=== PATIENT | male | born 1990 | race Caucasian/White ===

== ENCOUNTER 2016-11-13 11:26 | Emergency (ER) | payer BC ==
[2016-11-13] MEDS ORDERED: TORAdol 30 mg Injection IM ONE (14:01)
[2016-11-13] MEDS ORDERED: Celestone Soluspan 6MG/ML IM ONE (14:02)
[2016-11-13] MEDS ORDERED: TORAdol 30 mg Injection ONE (14:08)
--- NOTE | 2016-11-13 14:08 | ERPHSYRPT ---
- History of Present Illness Time Seen by Provider: 11/13/16 13:55 Source: patient Patient Subjective Stated Complaint: PT REPORTS HE HAS HX OF HERNIATED DISK IN BACK-STATES HE NORMALLY GETS SHOTS IN BACK BUT HAS NOT BEEN ABLE TO GET THEM- DENIES FURTHER INJURY Triage Nursing Assessment: PT PINK WARM ET [id number] OBVIOUS INJURY-NO LIMP NOTED WHEN PT AMBULATORY TO ED ROOM Physician History: CC: back pain Hx: 26 y/o patient with hx of herniated lumbar disk formerly saw pain specialist for back injections. He had to change doctors. He has worsened back pain radiating to leg for a few days, pain severe, sharp and stabbing. No fever , chills, abd pain, hematuria, incontinence. No tingling. Pain radiates to the right lateral upper leg. Not relieved with APAP/motrin at home. Timing/Duration: day(s) (few) Method of Injury: other (no recent injury) Back Pain Location: lumbar spine Back Pain Radiation: upper legs (right) Severity of Pain-Max: severe Severity of Pain-Current: severe Allergies/Adverse Reactions: tramadol Allergy (Verified 11/13/16 13:27) cross eyed Hx Tetanus, Diphtheria Vaccination/Date Given: Yes Hx Influenza Vaccination/Date Given: No Hx Pneumococcal Vaccination/Date Given: No Immunizations Up to Date: Yes - Review of Systems Constitutional: No Fever, No Chills Eyes: No Symptoms Ears, Nose, & Throat: No Symptoms Abdominal/Gastrointestinal: No Abdominal Pain Genitourinary Symptoms: No Dysuria, No Hematuria, No Incontinence, No Flank Pain , No Testicle Pain Musculoskeletal: Back Pain Skin: No Rash Neurological: No Focal Weakness, No Headache, No Parasthesia All Other Systems: Reviewed and Negative - Past Medical History Pertinent Past Medical History: Yes Neurological History: No Pertinent History ENT History: No Pertinent History Cardiac History: No Pertinent History Respiratory History: No Pertinent History Endocrine Medical History: No Pertinent History Musculoskeletal History: Fractures GI Medical History: No Pertinent History History: No Pertinent History Psycho-Social History: No Pertinent History Male Reproductive Disorders: No Pertinent History Other Medical History: [place] tooth infection - Past Surgical History Past Surgical History: No Neuro Surgical History: No Pertinent History Cardiac: No Pertinent History Respiratory: No Pertinent History Gastrointestinal: No Pertinent History Genitourinary: No Pertinent History Musculoskeletal: No Pertinent History Male Surgical History: No Pertinent History - Social History Smoking Status: Never smoker Exposure to second hand smoke: No Drug Use: none 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, 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) - Nursing Vital Signs Nursing Vital Signs: Initial Vital Signs Temperature 97.9 F 11/13/16 13:24 Pulse Rate 74 11/13/16 13:24 Respiratory Rate 20 11/13/16 13:24 Blood Pressure 113/61 11/13/16 13:24 O2 Sat by Pulse Oximetry 98 11/13/16 13:24 Pain Scale Pain Intensity 9 - Physical Exam General Appearance: alert, other (pleasant man who appears uncomfortable) Eye Exam: PERRL/EOMI Ears, Nose, Throat Exam: normal ENT inspection, moist mucous membranes Neck Exam: normal inspection, non-tender, supple Respiratory Exam: normal breath sounds Cardiovascular Exam: regular rate/rhythm Gastrointestinal Exam: soft, No tenderness, No distention Male [place] Exam: normal genitalia, No hernia, No testicular tenderness Back Exam: normal inspection, No CVA tenderness, No vertebral tenderness Extremity Exam: normal inspection, normal range of motion Neurologic Exam: alert, oriented x 3, cooperative, sensation nml, No motor deficits Skin Exam: warm, dry, No rash SpO2 Interpretation: normal SpO2: 97 Oxygen Delivery: Room Air - Course Nursing assessment & vital signs reviewed: Yes - Progress Progress Note: 11/13/16 14:06 Xrays not indicated. He 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 so can not give sedating meds here. Allergic to ultram. IM Toradol and celestone given. Will Rx norflex. He has appt at [facility] next week to get repeat MRI. Counseled pt/family regarding: diagnosis, need for follow-up - Departure Time of Disposition: 14:06 Departure Disposition: Home Clinical Impression: Sciatica of right side Condition: Stable Critical Care Time: No Referrals: MEÑO JUNG MD [Primary Care Provider] - Instructions: Back Pain With Sciatica Additional Instructions: BACK INJURY 1. May apply moist heat frequently for relief of pain. Take care not to burn the skin. Do not use heat for more than 30 minutes at a time. 2. Try to sleep on a firm bed, flat on your back. 3. If no improvement is noticed in 2-3 days, follow up with your family physician. 4. If you notice any numbness, tingling, weakness, or problems with your bowel or bladder, you should call your family physician or return to the emergency department. Continue ibuprofen 600mg every 6 hours with food. You received steroid injection today. Rx norflex for muscle relaxer- no driving or operating machinery. Follow up with Dr Jung next week as planned. Return for problems or concerns. Prescriptions: Orphenadrine Citrate 100 mg [Norflex 100 MG Tablet] 1 tab PO BID #10 tab
[2016-11-13] MEDS ORDERED: Celestone Soluspan 6MG/ML ONE (14:09)
[2016-11-13 14:19] VITALS: BP 120/64; PULSE 76; O2SAT 98
== END 2016-11-13 14:18 | disposition home or self-care (01) ==
LOC: ED 11:26
DX: M54.31 Sciatica, right side (principal)
CPT/HCPCS: 96372; 99284; J0702; J1885

== ENCOUNTER 2020-07-16 20:43 | Emergency (ER) | payer MEDICAID ==
[2020-07-16] MEDS ORDERED: solu-MEDROL 125 MG IM ONE (21:14)
[2020-07-16] MEDS ORDERED: PERCOCET TABLET 5/325MG PO STA (21:14)
[2020-07-16] MEDS ORDERED: Norflex 100 MG Tablet PO ONE (21:16)
[2020-07-16] MEDS ORDERED: PERCOCET TABLET 5/325MG ONE (21:21)
[2020-07-16] MEDS ORDERED: solu-MEDROL 125 MG ONE (21:21)
--- NOTE | 2020-07-16 21:22 | ERPHSYRPT ---
- History of Present Illness Time Seen by Provider: 07/16/20 21:05 Source: patient, family Patient Subjective Stated Complaint: pt states "I was playing softball Tuesday and hurt my back." Triage Nursing Assessment: pt ambulated into the er; pt is axo x4; c/o lower back pain; pt states 9/10 pain to lower rt back; pt states that he was playing softball on Tuesday and his back began to hurt that night; pt states that he did not feel his back go out while playing softball; pt states that he has hx of herniated disc; pt states that this pain does not feel the same; pt states that his back just hurts; pt has tenderness to rt lower back; pt denies numbness and tingling to lower extremities; strong pedal pulse; good cap refill; vitals wnl Physician History: This is a 29-year-old white male who is typically very active and was playing softball on Tuesday prior to this evaluation. He has known herniated disc in the L4-L5 base. He does not ordinarily have a lot of problems but occasionally, after a lot of activity he has significant pain in the lower back. His pain has increased as has his lower back tightness in the last few days. Patient did not fall or have direct trauma to his lower back. However he was active and his softball game. It is difficult for him to get up out of a chair and out of bed. He has no urinary incontinence. He has no bowel incontinence. The pain is not shooting down either leg. Is very localized in the bilateral paraspinous muscle region. There is at the lumbar level. Timing/Duration: day(s) (3) Method of Injury: twisted, turning, other (Throwing softballs running jumping) Quality: sharp, stabbing Back Pain Location: lumbar spine, paraspinous muscles Severity of Pain-Max: moderate Severity of Pain-Current: moderate Modifying Factors: Improves With: movement Associated Symptoms: denies symptoms Previous symptoms: same symptoms as today Allergies/Adverse Reactions: tramadol Allergy (Verified 07/16/20 20:53) cross eyed Hx Tetanus, Diphtheria Vaccination/Date Given: Yes Hx Influenza Vaccination/Date Given: No Hx Pneumococcal Vaccination/Date Given: No Travel Risk - International Travel Have you traveled outside of the country in past 3 weeks: No - Coronavirus Screening Are you exhibiting any of the following symptoms?: No Close contact with a COVID-19 positive Pt in past 14-21 Days: No - Vaccine Status Have you recieved a Covid-19 vaccination: No - Review of Systems Constitutional: No Symptoms Eyes: No Symptoms Ears, Nose, & Throat: No Symptoms Respiratory: No Symptoms Cardiac: No Symptoms Abdominal/Gastrointestinal: No Symptoms Genitourinary Symptoms: No Symptoms Musculoskeletal: Back Pain Skin: No Symptoms Neurological: No Symptoms Psychological: No Symptoms Endocrine: No Symptoms Hematologic/Lymphatic: No Symptoms Immunological/Allergic: No Symptoms All Other Systems: Reviewed and Negative - Past Medical History Pertinent Past Medical History: Yes Neurological History: No Pertinent History ENT History: No Pertinent History Cardiac History: No Pertinent History Respiratory History: No Pertinent History Endocrine Medical History: No Pertinent History Musculoskeletal History: Fractures GI Medical History: No Pertinent History History: No Pertinent History Psycho-Social History: No Pertinent History Male Reproductive Disorders: No Pertinent History Other Medical History: [place] tooth infection; herniated disc - Past Surgical History Past Surgical History: No Neuro Surgical History: No Pertinent History Cardiac: No Pertinent History Respiratory: No Pertinent History Gastrointestinal: No Pertinent History Genitourinary: No Pertinent History Musculoskeletal: No Pertinent History Male Surgical History: No Pertinent History - Social History Smoking Status: Never smoker Exposure to second hand smoke: No Drug Use: none Patient Lives Alone: No - Nursing Vital Signs Nursing Vital Signs: Initial Vital Signs Temperature 98.5 F 07/16/20 20:54 Pulse Rate 80 07/16/20 20:54 Respiratory Rate 18 07/16/20 20:54 Blood Pressure 104/63 07/16/20 20:54 O2 Sat by Pulse Oximetry 99 07/16/20 20:54 Pain Scale Pain Intensity [Right Lower 9 Back] Pain Intensity 9 - Physical Exam General Appearance: no apparent distress, alert, anxiety Eye Exam: PERRL/EOMI, eyes nml inspection Ears, Nose, Throat Exam: normal ENT inspection, moist mucous membranes Neck Exam: normal inspection, non-tender, supple, full range of motion Respiratory Exam: airway intact, No chest tenderness, No respiratory distress Gastrointestinal Exam: No tenderness Back Exam: normal inspection, decreased range of motion, muscle spasm, No CVA tenderness, No vertebral tenderness Extremity Exam: normal inspection, normal range of motion, pelvis stable Neurologic Exam: alert, oriented x 3, cooperative, occupational medicine officer II-XII nml as tested, normal mood/affect, nml cerebellar function, sensation nml Skin Exam: normal color, warm, dry Lymphatic Exam: No adenopathy SpO2 Interpretation: normal SpO2: 99 O2 Delivery: Room Air - Course Nursing assessment & vital signs reviewed: Yes - Progress Progress: improved, pain not gone completely Progress Note: 07/16/20 21:22 Patient specifically states that he wants to go to work tomorrow. He does not need a note for work. Counseled pt/family regarding: diagnosis, need for follow-up - Departure Departure Disposition: Home Clinical Impression: Acute exacerbation of chronic low back pain Condition: Stable Critical Care Time: No Referrals: MEÑO JUNG MD [Primary Care Provider] - Additional Instructions: Take medication as prescribed. Follow-up with your primary care physician for further management. Forms: Work/School Release Form Prescriptions: Carisoprodol 350 mg [Soma 350 mg] 350 mg PO Q8H PRN PRN #10 tablet PRN Reason: Muscle Spasms Prednisone 10 mg [Deltasone 10 mg] 10 mg PO TID #12 tablet
[2020-07-16 21:53] VITALS: BP 119/77; PULSE 71; O2SAT 97
== END 2020-07-16 21:58 | disposition home or self-care (01) ==
LOC: ED 20:43
DX: M54.5 Low back pain (principal)
CPT/HCPCS: 96372; 99284; J2930; A9270-GY

== ENCOUNTER 2020-09-24 02:41 | Emergency (ER) | payer BC, OTHER ==
[2020-09-24 03:04] VITALS: BP 128/73; PULSE 73; O2SAT 98
[2020-09-24] MEDS ORDERED: TORAdol 30 mg Injection ONE (03:15)
[2020-09-24] MEDS: TORAdol 30 mg Injection IM ONE (03:16)
--- NOTE | 2020-09-24 03:16 | ERPHSYRPT ---
- History of Present Illness Time Seen by Provider: 09/24/20 03:11 Source: patient Exam Limitations: no limitations Patient Subjective Stated Complaint: pt c/o rt shoulder blade pain when turning his neck Triage Nursing Assessment: pt c/o pain in his rt shoulder blade when turning his neck to the rt side. Able to move neck without diff. Pt states, "I just woke up this way". Pt able to lift rt arm up above his head without diff. Physician History: 29 years old presented in the ER with chief complaint of left shoulder blade area pain since yesterday when he woke up. Pain is more on the lateral to spinal column on the left which is aggravated with movements at neck in a certain direction, dull aching to sharp without any difficulty breathing or radiation of pain. Denies any fall trauma. No anterior chest pain. Timing/Duration: yesterday, intermittent, gradual onset, worse Method of Injury: unknown Quality: sharp, aching Back Pain Location: paraspinous muscles Severity of Pain-Max: moderate Severity of Pain-Current: moderate Modifying Factors: Worsens With: movement Associated Symptoms: denies symptoms Previous symptoms: no prior history Allergies/Adverse Reactions: tramadol Allergy (Verified 09/24/20 03:10) cross eyed Hx Tetanus, Diphtheria Vaccination/Date Given: Yes Hx Influenza Vaccination/Date Given: No Hx Pneumococcal Vaccination/Date Given: No Immunizations Up to Date: Yes Travel Risk - International Travel Have you traveled outside of the country in past 3 weeks: No - Coronavirus Screening Are you exhibiting any of the following symptoms?: No Close contact with a COVID-19 positive Pt in past 14-21 Days: No - Vaccine Status Have you recieved a Covid-19 vaccination: Yes [employer]: [employer] - Review of Systems Constitutional: No Symptoms Eyes: Photophobia Ears, Nose, & Throat: No Symptoms Respiratory: No Symptoms Cardiac: No Symptoms Abdominal/Gastrointestinal: No Symptoms Genitourinary Symptoms: No Symptoms Musculoskeletal: Back Pain Skin: No Symptoms Neurological: No Symptoms Psychological: No Symptoms Endocrine: No Symptoms - Past Medical History Pertinent Past Medical History: Yes Neurological History: No Pertinent History ENT History: No Pertinent History Cardiac History: No Pertinent History Respiratory History: No Pertinent History Endocrine Medical History: No Pertinent History Musculoskeletal History: Fractures, Other GI Medical History: No Pertinent History History: No Pertinent History Psycho-Social History: No Pertinent History Male Reproductive Disorders: No Pertinent History Other Medical History: [place] tooth infection; herniated disc, back injections. - Past Surgical History Past Surgical History: No Neuro Surgical History: No Pertinent History Cardiac: No Pertinent History Respiratory: No Pertinent History Gastrointestinal: No Pertinent History Genitourinary: No Pertinent History Musculoskeletal: No Pertinent History Male Surgical History: No Pertinent History - Social History Smoking Status: Never smoker Exposure to second hand smoke: No Drug Use: none Patient Lives Alone: No - Nursing Vital Signs Nursing Vital Signs: Initial Vital Signs Temperature 98.3 F 09/24/20 03:03 Pulse Rate 73 09/24/20 03:03 Respiratory Rate 16 09/24/20 03:03 Blood Pressure 128/73 09/24/20 03:03 O2 Sat by Pulse Oximetry 98 09/24/20 03:03 Pain Scale Pain Intensity [Right Shoulder 8 ] Pain Intensity 8 - Physical Exam General Appearance: no apparent distress Eye Exam: PERRL/EOMI Ears, Nose, Throat Exam: normal ENT inspection, TMs normal Neck Exam: normal inspection, non-tender, supple, full range of motion, No meningismus Respiratory Exam: normal breath sounds, lungs clear Cardiovascular Exam: regular rate/rhythm, normal heart sounds Back Exam: normal inspection, normal range of motion, muscle spasm (Right thoracic paraspinal area), No CVA tenderness, No vertebral tenderness Extremity Exam: normal inspection, normal range of motion, pelvis stable Neurologic Exam: alert, oriented x 3, cooperative, fast food supervisor II-XII nml as tested Skin Exam: normal color SpO2 Interpretation: normal SpO2: 98 O2 Delivery: Room Air Ordered Tests: Medication Summary Discontinued Medications Generic Name Dose Route Start Last Admin Trade Name Carlos PRN Reason Stop Dose Admin Ketorolac Tromethamine 30 mg 09/24/20 03:13 09/24/20 03:16 Toradol 30 Mg Injection IM 09/24/20 03:14 30 mg STAT ONE Administration Ketorolac Tromethamine Confirm 09/24/20 03:15 Toradol 30 Mg Injection Administered 09/24/20 03:16 Dose 30 mg .ROUTE .STK-MED ONE - Progress Progress: improved, re-examined Progress Note: 09/24/20 03:13 Given symptomatic treatment, reevaluation feeling better. It is clearly musculoskeletal pain, do not think is cardiac or pulmonary origin at all. I have not done any work-up. We will continue with oral analgesics and muscle relaxants to go home. Discussed signs symptoms of worsening needing return to ER which he seems understanding. Counseled pt/family regarding: diagnosis, need for follow-up - Departure Departure Disposition: Home Clinical Impression: Paraspinal muscle spasm Condition: Stable Critical Care Time: No Referrals: MEÑO JUNG MD [Primary Care Provider] - Follow Up with PCP/3 days Instructions: Muscle Spasms (DC) Additional Instructions: Take pain medication muscle relaxants as needed. Follow-up with primary care. Return to ER for worse.. Prescriptions: Methocarbamol 500 mg [Robaxin 500 MG] 500 mg PO Q6HPRN PRN 7 Days #20 tablet PRN Reason: Pain Diclofenac Sodium 75 mg PO BID PRN 10 Days #20 tablet. PRN Reason: Pain
== END 2020-09-24 03:30 | disposition home or self-care (01) ==
LOC: ED 02:41
DX: M62.838 Other muscle spasm (principal)
CPT/HCPCS: 96372; 99283; J1885

== ENCOUNTER 2021-10-07 14:14 | Day surgery (SDC) | payer BC, OTHER ==
[2012-10-15 04:48] VITALS: BP 114/78
[2021-10-07] MEDS ORDERED: Sodium Chloride 0.9(Preservative Free) 10 ML IJ ONE (14:15)
[2021-10-07] MEDS ORDERED: Xylocaine 1% Vial 30 ML PF IJ ONE (14:15)
[2021-10-07] MEDS ORDERED: Depo-Medrol 40 MG/ML IM ONE (14:15)
[2021-10-07] MEDS ORDERED: DIPRIVAN 200 MG/20 ML IV ONE (14:57)
--- NOTE | 2021-10-07 17:36 | XRAY ---
Indication: Right L4-S1 transforaminal MANDY. Intraoperative fluoroscopy provided for 37 seconds. 4 digital spot image submitted for interpretation demonstrates posterior needle tips projecting over the expected right L4 and L5 nerve roots. Small amount of contrast injected for needle tip placement. Correlate with intraoperative findings/report.
--- NOTE | 2021-10-07 17:46 | XRAY ---
37 seconds fluoroscopy time in surgery for right L4-S1 trasnsforaminal MANDY.
== END 2021-10-07 15:35 | disposition home or self-care (01) ==
LOC: SDC-PAIN 14:14
PROVIDERS: ATTEND Psychiatry & Neurology Pain Medicine
DX: M54.16 Radiculopathy, lumbar region (principal); Z79.899 Other long term (current) drug therapy
CPT/HCPCS: 64483; 64484; 72100; 77003; J1030; J2001; J2704; Q9966

== ENCOUNTER 2022-03-02 04:29 | Emergency (ER) | payer BC, OTHER ==
[2022-03-02 04:42] VITALS: O2SAT 99
[2022-03-02] MEDS ORDERED: TORAdol 30 mg Injection IM ONE (04:47)
[2022-03-02] MEDS ORDERED: TORAdol 30 mg Injection ONE (04:51)
--- NOTE | 2022-03-02 05:03 | ERPHSYRPT ---
- History of Present Illness Time Seen by Provider: 03/02/22 05:06 Source: patient Exam Limitations: no limitations Patient Subjective Stated Complaint: pain to my shoulder blade and up to my neck Triage Nursing Assessment: pt ambulated into ER without diff. Pt alert and oriented. Pt c/o left shoulder blade pain which radiates to his neck on the left side. Pt has not taken any pain meds for this. He did use heat pad but no relief. Physician History: Patient is a 31-year-old male presents to our ED for evaluation of pain to his left latissimus dorsi. Pain is at the area just below the scapula over the scapula and up into the trapezius area. 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 No blunt trauma. No falls no injuries. Pain described as an ache that is localized. Pain worse with extension of his left shoulder. No shoulder pain. No neck pain. Cervical spine cleared clinically. Symptoms are mild to moderate in intensity. Patient is otherwise healthy. He voices no other complaints or concerns at this time. Portions of this note were created with voice recognition technology. There may be grammatical, spelling, punctuation or sound alike errors Occurred: yesterday Method of Injury: other (Repetitive motion of managing turning a steering wheel of his left upper extremity while maneuvering a forklift.) Quality: aching Severity of Pain-Max: moderate Severity of Pain-Current: mild Extremities Pain Location: shoulder: left (Left latissimus dorsi.) Modifying Factors: Improves With: movement Associated Symptoms: none Allergies/Adverse Reactions: tramadol Allergy (Verified 03/02/22 04:48) cross eyed Hx Tetanus, Diphtheria Vaccination/Date Given: No Hx Influenza Vaccination/Date Given: No Hx Pneumococcal Vaccination/Date Given: No Immunizations Up to Date: No Travel Risk - International Travel Have you traveled outside of the country in past 3 weeks: No - Coronavirus Screening Are you exhibiting any of the following symptoms?: No Close contact with a COVID-19 positive Pt in past 14-21 Days: No - Vaccine Status Have you recieved a Covid-19 vaccination: Yes 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: [place] - Review of Systems Constitutional: No Symptoms, No Fever, No Chills Eyes: No Symptoms Ears, Nose, & Throat: No Symptoms Respiratory: No Symptoms, No Cough, No Dyspnea Cardiac: No Symptoms, No Chest Pain, No Edema, No Syncope Abdominal/Gastrointestinal: No Symptoms, No Abdominal Pain, No Nausea, No Vomiting, No Diarrhea Genitourinary Symptoms: No Symptoms, No Dysuria Musculoskeletal: No Symptoms, No Back Pain, No Neck Pain Skin: No Symptoms, No Rash Neurological: No Symptoms, No Dizziness, No Focal Weakness, No Sensory Changes Psychological: No Symptoms Endocrine: No Symptoms Hematologic/Lymphatic: No Symptoms Immunological/Allergic: No Symptoms All Other Systems: Reviewed and Negative - Past Medical History Pertinent Past Medical History: Yes Neurological History: No Pertinent History ENT History: No Pertinent History Cardiac History: No Pertinent History Respiratory History: No Pertinent History Endocrine Medical History: No Pertinent History Musculoskeletal History: Fractures, Other GI Medical History: No Pertinent History History: No Pertinent History Psycho-Social History: No Pertinent History Male Reproductive Disorders: No Pertinent History Other Medical History: Ferguson tooth infection; herniated disc, back injections. - Past Surgical History Past Surgical History: No Neuro Surgical History: No Pertinent History Cardiac: No Pertinent History Respiratory: No Pertinent History Gastrointestinal: No Pertinent History Genitourinary: No Pertinent History Musculoskeletal: No Pertinent History Male Surgical History: No Pertinent History - Social History Smoking Status: Never smoker Exposure to second hand smoke: No Drug Use: none Patient Lives Alone: No - Nursing Vital Signs Nursing Vital Signs: Initial Vital Signs Temperature 98.2 F 03/02/22 04:40 Pulse Rate 107 H 03/02/22 04:40 Respiratory Rate 18 03/02/22 04:40 Blood Pressure 109/91 03/02/22 04:40 O2 Sat by Pulse Oximetry 99 03/02/22 04:40 Pain Scale Pain Intensity 10 - Physical Exam General Appearance: no apparent distress, alert Eyes, Ears, Nose, Throat Exam: moist mucous membranes Neck Exam: normal inspection, non-tender, supple, full range of motion Cardiovascular/Respiratory Exam: chest non-tender, normal breath sounds, regular rate/rhythm, no respiratory distress Abdominal Exam: non-tender, soft, No guarding Back Exam: normal inspection, other (Tenderness palpation of left patella moves dorsi. This is the arm patient uses to steer his forklift.), No vertebral tenderness Shoulder Exam: normal inspection, non-tender (No pain at rotator cuff musculature or deltoid.), normal ROM, No swelling Elbow/Forearm Exam: normal inspection, non-tender, no evidence of injury, normal ROM Wrist Exam: normal inspection, non-tender, no evidence of injury, normal ROM Hand Exam: normal inspection, non-tender, no evidence of injury, normal ROM Neuro/Tendon Exam: normal sensation, normal motor functions, normal tendon functions Mental Status Exam: alert, oriented x 3, cooperative, No agitated Skin Exam: normal color, warm, dry SpO2 Interpretation: normal SpO2: 99 O2 Delivery: Room Air - Course Nursing assessment & vital signs reviewed: Yes Ordered Tests: Medication Summary Discontinued Medications Generic Name Dose Route Start Last Admin Trade Name Carlos PRN Reason Stop Dose Admin Ketorolac Tromethamine 30 mg 03/02/22 04:47 03/02/22 04:52 Ketorolac Tromethamine 30 Mg/Ml Inj IM 03/02/22 04:48 30 mg STAT ONE Administration Ketorolac Tromethamine Confirm 03/02/22 04:51 Ketorolac Tromethamine 30 Mg/Ml Inj Administered 03/02/22 04:52 Dose 30 mg .ROUTE .K-MED ONE - Progress Progress: improved Progress Note: No indication for imaging study. Patient is a 31-year-old male presents to emergency department for evaluation of pain to his left latissimus dorsi. 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 Review of systems negative. Physical exam reveals tenderness to palpation at the left tenderness dorsi muscle. Pain worse with extension of the elbow and internal rotation of his left upper extremity. Symptoms are acute. Complexity of complaint is mild in intensity. No significant comorbidities to contribute to patient's current complaint. No specific testing ordered. Diagnosis made on history and physical exam. History and physical exam were involved in medical decision making. Patient received Toradol for pain control. Patient also received left upper extremity shoulder sling for pain control. No consultations indicated. Plan of care discussed with patient. He agrees to follow-up with his primary care doctor within 48 hours for evaluation. Patient has the means to access and to follow through with plan of care. Level of EM service provided was low. Complexity of problem is mild. No specific data reviewed or analyzed. No specific testing ordered. Risk of complications and/or risk of morbidity/mortality of patient management is minimal. No critical care time. Patient independent historian provided all information of HPI. Patient reassessed. He feels well. No need for further evaluation. A prescription for Toradol was forwarded to patient's pharmacy. Patient agrees to follow-up with his primary care doctor within 48 hours for evaluation. Portions of this note were created with voice recognition technology. There may be grammatical, spelling, punctuation or sound alike errors 03/02/22 05:14 Counseled pt/family regarding: diagnosis, need for follow-up - Departure Departure Disposition: Home Clinical Impression: Strain of latissimus dorsi muscle, Repetitive motion injury Condition: Stable Critical Care Time: No Referrals: MEÑO JUNG MD [Primary Care Provider] - Follow up/PCP as directed Additional Instructions: Discharge/Care Plan PAMELA LION was seen on 03/02/22 in the Emergency Room. The patient was counseled regarding Diagnosis,Lab results, Imaging studies, need for follow up and when to return to the Emergency Room. Prescriptions given: Discharge Note I have spoken with the patient and/or caregivers. I have explained the patient's condition, diagnosis and treatment plan based on the information available to me at this time. I have answered the patient's and/or caregiver's questions and addressed any concerns. The patient and/or caregivers have as good understanding of the patient's diagnosis, condition and treatment plan as can be expected at this point. The vital signs have been stable. The patient's condition is stable and appropriate for discharge from the emergency department. The patient will pursue further outpatient evaluation with the primary care physician or other designated or consulting physician as outlined in the discharge instructions. The patient and/or caregivers are agreeable to this plan of care and follow-up instructions have been explained in detail. The patient and/or caregivers have received these instruction. The patient/and or caregivers are aware that any significant change in condition or worsening of symptoms should prompt an immediate return to this or the closest emergency department or call 911. Prescriptions: Ketorolac Trometh 10 mg Tab [TORAdol 10 MG TABLET] 10 mg PO TID 5 Days #15 tablet
[2022-03-02 05:11] VITALS: BP 131/85; PULSE 92
== END 2022-03-02 05:23 | disposition home or self-care (01) ==
LOC: ED 04:29
DX: S29.012A Strain of muscle and tendon of back wall of thorax, initial encounter (principal); X50.3XXA Overexertion from repetitive movements, initial encounter; Y99.0 Civilian activity done for income or pay; M54.2 Cervicalgia
CPT/HCPCS: 96372; 99283; J1885

== ENCOUNTER 2023-09-01 16:46 | Emergency (ER) | payer BC ==
[2023-09-01 17:47] VITALS: BP 132/77; PULSE 71; RESP 17; TEMP 97.5; O2SAT 99
[2023-09-01] MEDS ORDERED: TORAdol 30 mg Injection ONE (18:13)
[2023-09-01] MEDS ORDERED: Augmentin 875-125 Tablet ONE (18:13)
[2023-09-01] MEDS: Augmentin 875-125 Tablet PO ONE (18:14)
[2023-09-01] MEDS: TORAdol 30 mg Injection IM ONE (18:14)
--- NOTE | 2023-09-01 18:19 | ERPHSYRPT ---
- History of Present Illness Time Seen by Provider: 09/01/23 17:47 Source: patient Exam Limitations: no limitations Patient Subjective Stated Complaint: C/O left sided jaw pain/toothache for 2 days. Indicates he has an appointment with his dentist next Tuesday. Triage Nursing Assessment: Patient ambulated back to ER without difficulties. He is alert and oriented. Gums are swollen to bottom, left, back of mouth. Patient thinks he broke off part of a tooth in this general area. Physician History: 32-year-old male presented in the ER with complaint of 3 days history of left lower molar area pain and swelling with marked worsening since morning with associated jaw swelling. Patient reports radiation of pain to the left ear, sharp throbbing moderate to severe, no significant relief with taking [id number] pain medication. Has appointment in few days with Norberto. Allergies/Adverse Reactions: tramadol Allergy (Verified 09/01/23 17:38) cross eyed Hx Tetanus, Diphtheria Vaccination/Date Given: Yes Hx Influenza Vaccination/Date Given: No Hx Pneumococcal Vaccination/Date Given: No Immunizations Up to Date: Yes Travel Risk - International Travel Have you traveled outside of the country in past 3 weeks: No - Emerging Infectious Disease Are you exhibiting symptoms associated with any current EIDs: No - Review of Systems Constitutional: No Symptoms Eyes: No Symptoms Ears, Nose, & Throat: Mouth Pain, Mouth Swelling, Loose Teeth Respiratory: No Symptoms Cardiac: No Symptoms Musculoskeletal: No Symptoms Neurological: No Symptoms Endocrine: No Symptoms - Past Medical History Pertinent Past Medical History: Yes Neurological History: No Pertinent History ENT History: No Pertinent History Cardiac History: No Pertinent History Respiratory History: No Pertinent History Endocrine Medical History: No Pertinent History Musculoskeletal History: Fractures, Other GI Medical History: No Pertinent History History: No Pertinent History Psycho-Social History: No Pertinent History Male Reproductive Disorders: No Pertinent History Other Medical History: herniated disc - Past Surgical History Past Surgical History: No Neuro Surgical History: No Pertinent History Cardiac: No Pertinent History Respiratory: No Pertinent History Gastrointestinal: No Pertinent History Genitourinary: No Pertinent History Musculoskeletal: No Pertinent History Male Surgical History: No Pertinent History - Social History Smoking Status: Never smoker Exposure to second hand smoke: No Drug Use: none Patient Lives Alone: No - Social Determinants of Health Will the patient participate in the screening: Yes Do you worry about a steady place to live?: No Do you have any problems with any of the following?: No known problems In the past 12 months,have you had to go without utilities?: No Transportation Issues: No Has anyone in your support network made you feel unsafe?: No Have you or anyone in your house had to go without enough: No - Nursing Vital Signs Nursing Vital Signs: Initial Vital Signs Temperature 97.5 F 09/01/23 17:39 Pulse Rate 71 09/01/23 17:39 Respiratory Rate 17 09/01/23 17:39 Blood Pressure 132/77 09/01/23 17:39 O2 Sat by Pulse Oximetry 99 09/01/23 17:39 Pain Scale Pain Intensity 9 - Physical Exam General Appearance: no apparent distress, alert Eye Exam: bilateral eye: normal inspection, PERRL, EOMI Ear Exam: bilateral ear: auricle normal, canal normal, TM normal, other (Lateral negative mastoid tenderness) Nasal Exam: normal inspection Throat Exam: normal, pharynx normal, dental tenderness (Left lower more with some gingival swelling. No fluctuation.) Neck Exam: normal inspection, non-tender, supple, full range of motion Cardiovascular/Respiratory Exam: normal breath sounds, regular rate/rhythm Neurologic Exam: alert, oriented x 3, cooperative, boiler out II-XII nml as tested Skin Exam: normal color SpO2 Interpretation: normal SpO2: 99 O2 Delivery: Room Air Ordered Tests: Medication Summary Discontinued Medications Generic Name Dose Route Start Last Admin Trade Name Freq PRN Reason Stop Dose Admin Amoxicillin/Clavulanate Potassium 875 mg 09/01/23 18:01 Amox Tr/Potassium Clavulanate 875 Mg Tablet PO 09/01/23 18:02 STAT ONE Ketorolac Tromethamine 30 mg 09/01/23 18:01 Ketorolac Tromethamine 30 Mg/Ml Inj IM 09/01/23 18:02 STAT ONE - Progress Progress Note: 09/01/23 18:17 32-year-old is evaluated in the ER for left lower molar area swelling. Patient has dental caries with some periodontal disease as well. No fluctuation. Started on Augmentin. Given Toradol for symptomatic relief. Also given dental balls. Outpatient dental follow-up recommended. Discussed signs symptoms of worsening needing return to ER which she seems understanding. Counseled pt/family regarding: diagnosis, need for follow-up Medical Desision Making - Risk of complications The pt has a mod risk of morbidity or mortality based on: Need for prescription drug management - Departure Departure Disposition: Home Clinical Impression: Dental infection Condition: Stable Critical Care Time: No Referrals: MEÑO JUNG MD [Primary Care Provider] - Follow up with PCP 1 day Instructions: Dental Pain (DC), Tooth Abscess (DC) Additional Instructions: Keep appointment with your dentist. Take Tylenol/ibuprofen as needed. Follow- up with primary care /dentist for reevaluation. Return to ER for any worsening. Prescriptions: Ibuprofen 600 mg PO Q6HPRN PRN 10 Days #20 tablet PRN Reason: Pain Amox Tr/Potass Clav. 875 mg [Augmentin 875-125 Tablet] 875 mg PO BID #14 tablet
[2023-09-01] MEDS ORDERED: XYLOCAINE VISCOUS 2% 15 ML CUP ONE ×2 (18:20→19:04)
[2023-09-01] MEDS ORDERED: MAALOX ES 30 ML UNIT DOSE ONE ×2 (18:20→19:04)
[2023-09-01] MEDS ORDERED: CETACAINE SPRAY ONE (18:20)
[2023-09-01] MEDS: MAALOX ES 30 ML UNIT DOSE MM ONE (19:07)
[2023-09-01] MEDS: CETACAINE SPRAY MM ONE (19:07)
[2023-09-01] MEDS: XYLOCAINE VISCOUS 2% 15 ML CUP MM ONE (19:07)
== END 2023-09-01 19:16 | disposition home or self-care (01) ==
LOC: ED 16:46
DX: K04.7 Periapical abscess without sinus (principal); R68.84 Jaw pain
CPT/HCPCS: 96372; 99283; J1885; A9270-GY

== ENCOUNTER 2023-09-19 22:57 | Emergency (ER) | payer BC ==
[2023-09-20 01:49] VITALS: TEMP 100
--- NOTE | 2023-09-20 02:07 | ERPHSYRPT ---
- History of Present Illness Time Seen by Provider: 09/20/23 01:55 Source: patient Exam Limitations: clinical condition Patient Subjective Stated Complaint: body aches, headache, fever, nonproductive cough Triage Nursing Assessment: pt ambulatory to bed by self with at bedside, pt alert and oriented x3, pt c/o body aches, headache, fever, nonproductive cough. pt afebrile currently but did take tylenol around 2100, face flushed. Timing/Duration: today Severity: mild Allergies/Adverse Reactions: tramadol Allergy (Verified 09/20/23 01:43) cross eyed Hx Tetanus, Diphtheria Vaccination/Date Given: Yes Hx Influenza Vaccination/Date Given: No Hx Pneumococcal Vaccination/Date Given: No Travel Risk - International Travel Have you traveled outside of the country in past 3 weeks: No - Emerging Infectious Disease Are you exhibiting symptoms associated with any current EIDs: Yes Symptoms: Cough: New Onset, Fever, Headaches/Body Aches/ - Past Medical History Pertinent Past Medical History: Yes Neurological History: No Pertinent History ENT History: No Pertinent History Cardiac History: No Pertinent History Respiratory History: No Pertinent History Endocrine Medical History: No Pertinent History Musculoskeletal History: Fractures, Other GI Medical History: No Pertinent History History: No Pertinent History Psycho-Social History: No Pertinent History Male Reproductive Disorders: No Pertinent History Other Medical History: herniated disc - Past Surgical History Past Surgical History: No Neuro Surgical History: No Pertinent History Cardiac: No Pertinent History Respiratory: No Pertinent History Gastrointestinal: No Pertinent History Genitourinary: No Pertinent History Musculoskeletal: No Pertinent History Male Surgical History: No Pertinent History - Social History Smoking Status: Never smoker Exposure to second hand smoke: No Drug Use: none Patient Lives Alone: No - Social Determinants of Health Will the patient participate in the screening: Yes Do you worry about a steady place to live?: No Do you have any problems with any of the following?: No known problems In the past 12 months,have you had to go without utilities?: No Transportation Issues: No Has anyone in your support network made you feel unsafe?: No Have you or anyone in your house had to go without enough: No - Nursing Vital Signs Nursing Vital Signs: Initial Vital Signs Temperature 100.0 F 09/20/23 01:43 Pulse Rate 103 H 09/20/23 01:43 Respiratory Rate 18 09/20/23 01:43 Blood Pressure 99/66 09/20/23 01:43 O2 Sat by Pulse Oximetry 99 09/20/23 01:43 Pain Scale Pain Intensity 6 - Physical Exam SpO2: 99 Ordered Tests: Active Orders 24 hr Category Date Time Status IV Insertion STAT Care 09/20/23 02:35 Active CHEST 1 VIEW (PORTABLE) Stat Exams 09/20/23 02:18 Taken HEAD WITHOUT CONTRAST [CT] Stat Exams 09/20/23 02:04 Completed CBC W DIFF Stat Lab 09/20/23 02:40 Completed CK-Creatinine Phosphokinase Stat Lab 09/20/23 02:40 Completed CMP Stat Lab 09/20/23 02:40 Completed Lactic Acid Stat Lab 09/20/23 02:30 Completed PROCALCITONIN Stat Lab 09/20/23 02:40 Completed UA W/RFX UR CULTURE Stat Lab 09/20/23 02:03 Ordered Medication Summary Generic Name Dose Route Start Last Admin Trade Name Freq PRN Reason Stop Dose Admin Sodium Chloride 1,000 mls @ 999 mls/hr 09/20/23 05:11 Sodium Chloride 0.9% 1000 Ml IV 09/20/23 06:11 .Q1H1M STA Ibuprofen 600 mg 09/20/23 02:06 09/20/23 02:46 Ibuprofen 600 Mg Tablet PO 10/20/23 02:05 600 mg TIDP PRN Administration MODERATE PAIN Discontinued Medications Generic Name Dose Route Start Last Admin Trade Name Freq PRN Reason Stop Dose Admin Azithromycin 500 mg 09/20/23 03:59 09/20/23 04:20 Azithromycin 250 Mg Tablet PO 09/20/23 04:00 500 mg STAT ONE Administration Azithromycin Confirm 09/20/23 04:14 Azithromycin 250 Mg Tablet Administered 09/20/23 04:15 Dose 500 mg .ROUTE .STK-MED ONE Diphenhydramine HCl 50 mg 09/20/23 02:04 09/20/23 02:46 Diphenhydramine Hcl 50 Mg/Ml Vial IV 09/20/23 02:05 50 mg STAT ONE Administration Diphenhydramine HCl Confirm 09/20/23 02:41 Diphenhydramine Hcl 50 Mg/Ml Vial Administered 09/20/23 02:42 Dose 50 mg .ROUTE .STK-MED ONE Sodium Chloride 1,000 mls @ 999 mls/hr 09/20/23 02:02 09/20/23 03:55 Sodium Chloride 0.9% 1000 Ml IV 09/20/23 03:02 Infused .Q1H1M STA Infusion Sodium Chloride Confirm 09/20/23 02:42 Sodium Chloride 0.9% 1000 Ml Administered 09/20/23 02:43 Dose 1,000 mls @ ud .ROUTE .STK-MED ONE Ceftriaxone Sodium 1 gm in 100 mls @ 200 mls/hr 09/20/23 03:59 09/20/23 04:53 Rocephin 1 Gm / 100 Ml Nacl IV 09/20/23 04:28 Infused STAT ONE Infusion Sodium Chloride 1,000 mls @ 999 mls/hr 09/20/23 04:00 09/20/23 05:32 Sodium Chloride 0.9% 1000 Ml IV 09/20/23 05:00 Infused .Q1H1M STA Infusion Sodium Chloride Confirm 09/20/23 04:14 Sodium Chloride 0.9% 1000 Ml Administered 09/20/23 04:15 Dose 1,000 mls @ ud .ROUTE .STK-MED ONE Ceftriaxone Sodium Confirm 09/20/23 04:15 Rocephin 1 Gm / 100 Ml Nacl Administered 09/20/23 04:16 Dose 1 gm in 100 mls @ ud IV .STK-MED ONE Metoclopramide HCl 10 mg 09/20/23 02:02 09/20/23 02:46 Metoclopramide Hcl 10 Mg/2 Ml Vial IV 09/20/23 02:03 10 mg STAT ONE Administration Metoclopramide HCl Confirm 09/20/23 02:41 Metoclopramide Hcl 10 Mg/2 Ml Vial Administered 09/20/23 02:42 Dose 10 mg .ROUTE .STK-MED ONE Lab/Rad Data: Laboratory Result Diagrams 09/20/23 02:40 09/20/23 02:40 Laboratory Results 09/20/23 09/20/23 09/20/23 Range/Units 02:40 02:40 02:40 WBC 6.1 (4.23-9.07) x10^3/uL RBC 4.50 L (4.63-6.08) x10^6/uL Hgb 13.3 L (13.7-17.5) g/dL Hct 40.5 (40.1-51.0) % MCV 90.0 (79.0-92.2) fL MCH 29.6 (25.7-32.2) pg MCHC 32.8 (32.3-36.5) g/dL RDW 12.6 (11.6-14.4) % Plt Count 211 (163-337) x10^3/uL MPV 10.8 (9.4-12.4) fL Gran % 66.8 (34.0-67.9) % Immature Gran % (Auto) 0.5 H (0.001-0.429) % Nucleat RBC Rel Count 0.0 (0.00-0.2) % Eos # (Auto) 0.03 L (0.04-0.54) x10^3/uL Immature Gran # (Auto) 0.03 (0.001-0.031) x10^3u/L Absolute Lymphs (auto) 0.81 L (1.32-3.57) x10^3/uL Absolute Monos (auto) 1.11 H (0.30-0.82) x10^3/uL Absolute Nucleated RBC 0.00 (0.00-0.012) x10^3u/L Lymphocytes % 13.4 L (21.8-53.1) % Monocytes % 18.3 H (5.3-12.2) % Eosinophils % 0.5 L (0.8-7.0) % Basophils % 0.5 (0.2-1.2) % Absolute Granulocytes 4.04 (1.78-5.38) x10^3/uL Basophils # 0.03 (0.01-0.08) x10^3/uL Sodium (135-145) mmol/L Potassium (3.5-5.1) mmol/L Chloride (98-107) mmol/L Carbon Dioxide (22-30) mmol/L Anion Gap (5-15) MEQ/L BUN (9-20) mg/dL Creatinine (0.66-1.25) mg/dL Estimated GFR ML/MIN Glucose (74-106) mg/dL Lactic Acid (0.4-2.0) Calcium (8.4-10.2) mg/dL Total Bilirubin (0.2-1.3) mg/dL AST (17-59) U/L ALT (0-50) U/L Alkaline Phosphatase (38-126) U/L Creatine Kinase (55-170) U/L Serum Total Protein (6.3-8.2) g/dL Albumin (3.5-5.0) g/dL Procalcitonin 0.182 H (0.030-0.080) ng/mL Influenza Type A Ag NEGATIVE (NEGATIVE) Influenza Type B Ag NEGATIVE (NEGATIVE) RSV (PCR) NEGATIVE (NEGATIVE) SARS-CoV-2 (PCR) POSITIVE A (NEGATIVE) 09/20/23 09/20/23 Range/Units 02:40 02:30 WBC (4.23-9.07) x10^3/uL RBC (4.63-6.08) x10^6/uL Hgb (13.7-17.5) g/dL Hct (40.1-51.0) % MCV (79.0-92.2) fL MCH (25.7-32.2) pg MCHC (32.3-36.5) g/dL RDW (11.6-14.4) % Plt Count (163-337) x10^3/uL MPV (9.4-12.4) fL Gran % (34.0-67.9) % Immature Gran % (Auto) (0.001-0.429) % Nucleat RBC Rel Count (0.00-0.2) % Eos # (Auto) (0.04-0.54) x10^3/uL Immature Gran # (Auto) (0.001-0.031) x10^3u/L Absolute Lymphs (auto) (1.32-3.57) x10^3/uL Absolute Monos (auto) (0.30-0.82) x10^3/uL Absolute Nucleated RBC (0.00-0.012) x10^3u/L Lymphocytes % (21.8-53.1) % Monocytes % (5.3-12.2) % Eosinophils % (0.8-7.0) % Basophils % (0.2-1.2) % Absolute Granulocytes (1.78-5.38) x10^3/uL Basophils # (0.01-0.08) x10^3/uL Sodium 138 (135-145) mmol/L Potassium 3.4 L (3.5-5.1) mmol/L Chloride 100 (98-107) mmol/L Carbon Dioxide 26 (22-30) mmol/L Anion Gap 15.3 H (5-15) MEQ/L BUN 22 H (9-20) mg/dL Creatinine 1.23 (0.66-1.25) mg/dL Estimated GFR 79.5 ML/MIN Glucose 93 (74-106) mg/dL Lactic Acid 1.2 (0.4-2.0) Calcium 9.0 (8.4-10.2) mg/dL Total Bilirubin 0.50 (0.2-1.3) mg/dL AST 39 (17-59) U/L ALT 39 (0-50) U/L Alkaline Phosphatase 65 (38-126) U/L Creatine Kinase 122 (55-170) U/L Serum Total Protein 8.1 (6.3-8.2) g/dL Albumin 4.5 (3.5-5.0) g/dL Procalcitonin (0.030-0.080) ng/mL Influenza Type A Ag (NEGATIVE) Influenza Type B Ag (NEGATIVE) RSV (PCR) (NEGATIVE) SARS-CoV-2 (PCR) (NEGATIVE) - Progress Progress Note: Patient was seen and evaluated for weakness fever chills and migraine headache. He was given IV fluids and Tylenol. Chest x-ray reveals questionable haziness in the right lower lobe. Will be treated for pneumonia with Rocephin and Zithromax. he will be discharged home with his pack and inhaler. He is positive for COVID. Was informed of the need to take Tylenol and Motrin re gularly and drink plenty of fluids and stay hydrated and follow-up with his primary care provider 09/20/23 04:02 09/20/23 05:38 Patient received 2 L of IV fluids and he was able to produce some urine he did not want to wait for the third liter and wanted to go home he will follow-up with his primary care provider Medical Desision Making - Discussion of managment Agreed on:: need for follow-up - Departure Clinical Impression: Migraine headache, COVID Condition: Stable Critical Care Time: No Referrals: MEÑO JUNG MD [Primary Care Provider] - Follow up/PCP as directed Instructions: Headache, Adult (DC) Additional Instructions: Please take Tylenol and Motrin regularly Prescriptions: Albuterol 8 gm Mdi Hfa [Ventolin Hfa MDI] 8 gm IH Q4H #1 inhaler Azithromycin 250 mg [Zithromax 250 MG TABLET] 250 mg PO ZPACK #6 tablet
[2023-09-20] MEDS ORDERED: MOTRIN 600 MG ONE (02:41)
[2023-09-20] MEDS ORDERED: Reglan 10 MG/2 ML ONE (02:41)
[2023-09-20] MEDS ORDERED: BENADRYL 50 MG/ML ONE (02:41)
[2023-09-20] MEDS ORDERED: Sodium Chloride 0.9% 1000 ML 1,000 ML ONE ×2 (02:42→04:14)
[2023-09-20] MEDS: Sodium Chloride 0.9% 1000 ML 1,000 ML IV STA ×3 (02:46→05:38)
[2023-09-20] MEDS: MOTRIN 600 MG PO PRN (02:46)
[2023-09-20] MEDS: Reglan 10 MG/2 ML IV ONE (02:46)
[2023-09-20] MEDS: BENADRYL 50 MG/ML IV ONE (02:46)
[2023-09-20 02:53] LABS: Absolute Neutrophil Ct (ANC) 4.04 x10^3/uL (1.78-5.38); BASOPHIL % 0.5 % (0.2-1.2); Basophil (Absolute #) 0.03 x10^3/uL (0.01-0.08); Eosinophil % 0.5 % (0.8-7.0); Eosinophil (Absolute #) 0.03 x10^3/uL (0.04-0.54); Hematocrit 40.5 % (40.1-51.0); Hemoglobin 13.3 g/dL (13.7-17.5); IMMATURE GRAN # 0.03 x10^3u/L (0.001-0.031); IMMATURE GRAN % 0.5 % (0.001-0.429); Lymphocyte (Absolute #) 0.81 x10^3/uL (1.32-3.57); Lymphocytes % 13.4 % (21.8-53.1); Mean Corpuscular Hemoglobin 29.6 pg (25.7-32.2); Mean Corpuscular Hgb Concent. 32.8 g/dL (32.3-36.5); Mean Platelet Volume 10.8 fL (9.4-12.4); Monocyte (Absolute #) 1.11 x10^3/uL (0.30-0.82); Monocytes % 18.3 % (5.3-12.2); Neutrophil % 66.8 % (34.0-67.9); Platelet Count 211 x10^3/uL (163-337); Red Cell Distribution Width 12.6 % (11.6-14.4); White Blood Count 6.1 x10^3/uL (4.23-9.07)
[2023-09-20 03:06] LABS: ALBUMIN 4.5 g/dL (3.5-5.0); ANION GAP 15.3 MEQ/L (5-15); BILIRUBIN,TOTAL 0.5 mg/dL (0.2-1.3); Creatinine 1 1.23 mg/dL (0.66-1.25); EST GLOMERULAR FILTRATION RATE 79.5 ML/MIN; Potassium 3.4 mmol/L (3.5-5.1); Total Protein 8.1 g/dL (6.3-8.2)
[2023-09-20 03:35] LABS: INFLUENZA A NEGATIVE (NEGATIVE); INFLUENZA B NEGATIVE (NEGATIVE); RESPIRATORY SYNCTIAL VIRUS NEGATIVE (NEGATIVE)
[2023-09-20 03:37] LABS: SARS-CoV-2 Xpert Express POSITIVE (NEGATIVE)
--- NOTE | 2023-09-20 03:43 | XRAY ---
CLINICAL HISTORY: headache COMPARISON: None. TECHNIQUE: Axial non-contrast CT scan of the brain was performed from the skull base to the high parietal region. Coronal and sagittal reformats were also obtained. One of the following dose reduction techniques were utilized for this exam: Automated exposure control, adjustment of the mA and/or kV according to patient size, use of iterative reconstruction. CTDI: 53.92 mGy, DLP; 991.01mGy*cm. FINDINGS: Brain Parenchyma: Normal attenuation of the cerebral hemispheres, cerebellum, and brainstem. No evidence of acute infarct, hemorrhage, or mass effect. No abnormal areas of hypo- or hyperattenuation. Ventricular System: Ventricles are normal in size and configuration. No evidence of hydrocephalus or ventricular enlargement. Subarachnoid Spaces: Normal sulci and cisterns. No evidence of subarachnoid hemorrhage or extra-axial fluid collections. Extra axial hypodensity of CSF attenuation in the posterior fossa on left side, measuring 2.5x2.0 cm. Cerebellum and Brainstem: Normal size and signal. No masses, lesions, or areas of abnormal signal. Orbits: Normal appearance of the globes, optic nerves, and extraocular muscles. No evidence of orbital masses or abnormal signal. Sinuses: Clear paranasal sinuses. No evidence of sinusitis or mucosal thickening. Mastoid Air Cells: Clear mastoid air cells. No evidence of mastoiditis. Skull and Meninges: Normal skull morphology. No evidence of meningeal thickening. IMPRESSION: 1. No acute intracranial pathology. 2. Extra axial hypodensity of CSF attenuation in the posterior fossa on left side, measuring 2.5x2.0 cm, possible arachnoid cyst. Electronically Signed by: Jodi Monson MD. (09/20/2023 03:38:37 EDT)
[2023-09-20] MEDS ORDERED: Zithromax 250 MG TABLET ONE (04:14)
[2023-09-20] MEDS ORDERED: ROCEPHIN 1 GM / 100 ML NaCl 1 GM/100 ML IVPB IV ONE (04:15)
[2023-09-20] MEDS: Zithromax 250 MG TABLET PO ONE (04:20)
[2023-09-20] MEDS: ROCEPHIN 1 GM / 100 ML NaCl 1 GM/100 ML IVPB IV ONE (04:21)
[2023-09-20 04:48] VITALS: RESP 16
[2023-09-20 05:32] VITALS: BP 101/57; PULSE 88
[2023-09-20 05:39] VITALS: O2SAT 99
[2023-09-20 06:06] LABS: Appearance Clear (Clear); Bacteria None Seen /HPF (None Seen); Bilirubin Negative (Negative); Blood Trace (Negative); Epithelial Cells None Seen /HPF (None Seen); Glucose, Urine Negative (Negative); Hyaline Casts NONE SEEN /LPF (0-2); Ketones 15 (Negative); Leukocyte Esterase Negative (Negative); Nitrite Negative (Negative); Ph 5.5 (4.6-8.0); Protein,Urine Dip Trace (Negative); RBC 0-2 /HPF (0-5); Specific Gravity 1.025 (1.005-1.030); Urobilinogen 0.2 mg/dL (0.2); WBC 0-2 /HPF (0-5)
[2023-09-20 06:08] LABS: ADD URINE CULTURE? NO (NO)
--- NOTE | 2023-09-20 08:42 | XRAY ---
Indication: Cough and bodyaches. Comparison: October 15, 2012 Portable chest again demonstrates small right upper lobe calcified granuloma. No focal infiltrate, consolidation, or large effusion. Heart and mediastinal structures within normal limits. Bony thorax intact. Impression: Nonacute chest. 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
== END 2023-09-20 05:44 | disposition home or self-care (01) ==
LOC: ED 22:57
DX: U07.1 COVID-19 (principal); G43.909 Migraine, unspecified, not intractable, without status migrainosus; M79.10 Myalgia, unspecified site; R50.9 Fever, unspecified; R05.9 Cough, unspecified; Z79.899 Other long term (current) drug therapy
CPT/HCPCS: 0241U; 36000; 36415; 70450; 71045; 80053; 81001; 82550; 83605; 84145; 85025; 96360; 96361; 96365; 96374; 96375; 99284; J0696; J1200; A9270-GY